=== PATIENT | female | born 1955 | race Caucasian/White ===

== ENCOUNTER → 2018-06-15 | Outpatient (CLI) | payer BC, OTHER ==
--- NOTE | 2018-06-15 12:47 | ECHOS ---
STRESS ECHOCARDIOGRAM INDICATIONS: Chest pain. MEDICATIONS: Labetalol, olmesartan, Synthroid. BASELINE HEART RATE: 74 BASELINE BLOOD PRESSURE: 140/70 MAXIMUM HEART RATE: 146. MAXIMUM BLOOD PRESSURE: 211/87 85% MPHR: 134 100% MPHR: 158 METS: 7.1 MAXIMUM STAGE REACHED: 2 TOTAL EXERCISE TIME: 6:00 CLINICAL INFORMATION: Baseline EKG revealed normal sinus rhythm without significant ST abnormality. Patient walked for 6 minutes on a standard [facility] protocol and achieved a maximal heart rate of 146 beats per minute which is more than 85% of predicted maximal. Resting heart rate was 74 beats per minute. Resting blood pressure was 140/70. Peak blood pressure was 211/87. Patient did not have angina or arrhythmia of significance. Rare isolated PVCs were noted. There was no ST-segment changes to indicate ischemia. By EKG criteria, this is a negative stress test with limited exercise capacity. Baseline echo images revealed normal wall motion and wall thickening of all segments. At peak exercise there was good augmentation of left and wall motion wall thickening of all segments suggesting that there is no evidence of stress-induced ischemia on this study. IMPRESSION: 1. Limited exercise capacity with a negative stress test by EKG criteria. 2. Normal stress echocardiogram. Patient has achieved a heart rate of more than 85% of predicted maximal and had slightly hypertensive response to exercise. MMODL / IJN: [id number] /
== END ==
LOC: RADNMMAIN 09:05
PROVIDERS: ATTEND Internal Medicine Geriatric Medicine
DX: R07.9 Chest pain, unspecified (principal)
CPT/HCPCS: 93351